=== PATIENT | female | born 1950 | race Two or more races ===

== ENCOUNTER 2025-04-10 19:02 | Emergency (ER) | payer OTHER ==
[~2025-04-10] VITALS: Ht 162.6 cm; Wt 70.3 kg
[2025-04-10 19:41] VITALS: BP 118/71; O2SAT 96
[2025-04-10] MEDS ORDERED: METFORMIN HCL500 M3 PO (19:44)
[2025-04-10] MEDS ORDERED: OZEMPIC0.25 MG/02 (19:45)
[2025-04-10] MEDS ORDERED: PLAVIX75 MG PO (19:45)
[2025-04-10] MEDS ORDERED: ADULT LOW DOSE81 M1 PO (19:45)
[2025-04-10] MEDS ORDERED: JARDIANCE25 MG PO (19:45)
[2025-04-10] MEDS ORDERED: ROPINIROLE HCL1 MG PO (19:46)
[2025-04-10] MEDS ORDERED: ATORVASTATIN CA40 MG PO (19:46)
[2025-04-10] MEDS ORDERED: TOPROL XL25 M1 PO (19:47)
[2025-04-10] MEDS ORDERED: ISOSORBIDE DINI30 MG PO (19:47)
[2025-04-10] MEDS ORDERED: PROTONIX20 MG PO (19:47)
[2025-04-10] MEDS ORDERED: TETANUS & DIPHTHERIA TOX,ADULT 0.5 ML VIAL IM ONE (20:15)
[2025-04-10] MEDS ORDERED: TRAMADOL HCL 50 MG TABLET PO ONE (20:15)
[2025-04-10] MEDS ORDERED: DIPHTH,PERTUSS(ACELL),TET VAC 0.5 ML SYRINGE IM ONE (20:45)
[2025-04-10] MEDS ORDERED: TRAMADOL HCL E100 MG PO (22:01)
[2025-04-10] MEDS ORDERED: PEPCID AC20 MG PO (22:01)
[2025-04-10] MEDS ORDERED: CEFUROXIME500 MG PO (22:01)
== END 2025-04-10 22:25 | disposition home or self-care (01) ==
LOC: ER 19:02
DX: S69.92XA Unspecified injury of left wrist, hand and finger(s), initial encounter (principal); W18.39XA Other fall on same level, initial encounter; Y93.89 Activity, other specified; Y92.89 Other specified places as the place of occurrence of the external cause; Z91.013 Allergy to seafood; Z91.048 Other nonmedicinal substance allergy status; I25.2 Old myocardial infarction; I10 Essential (primary) hypertension; I25.10 Atherosclerotic heart disease of native coronary artery without angina pectoris; G47.39 Other sleep apnea
CPT/HCPCS: 73110; 90471; 90714; 99283; J1670